=== PATIENT | female | born 1950 | race Caucasian/White ===

== ENCOUNTER 2019-07-04 06:39 | Day surgery (SDC) | payer MEDICARE, BC ==
[2019-07-04] MEDS ORDERED: LIDOCAINE 2% MDV (20MG/ML) 20ML VIAL IV ONE (06:40)
[2019-07-04] MEDS ORDERED: ONDANSETRON HCL IV 4 MG/2 ML VIAL IVP ONE (06:40)
[2019-07-04] MEDS ORDERED: DEXAMETHASONE 4 MG/ML 1ML VIAL IVP ONE (06:40)
[2019-07-04] MEDS ORDERED: BUPIVACAINE 0.25% MPF 30ML VIAL IVP ONE (06:40)
[2019-07-04] MEDS ORDERED: BUPIVACAINE LIPOSOME/PF 133MG/10ML VIAL IV ONE (06:40)
[2019-07-04] MEDS ORDERED: MIDAZOLAM HCL 2MG/2ML VIAL IV ONE (06:40)
[2019-07-04] MEDS ORDERED: PROPOFOL 10 MG/ML VIAL IV ONE (06:40)
[2019-07-04] MEDS ORDERED: CEFAZOLIN 2 Gram 2 GM/50 ML BAG IVPB ONE (07:00)
[2019-07-04] MEDS ORDERED: ACETAMINOPHEN 1,000 MG/100 ML BTL IVPB ONE (07:00)
[2019-07-04] MEDS ORDERED: FAMOTIDINE 20MG TABLET PO ONE (07:00)
[2019-07-04] MEDS ORDERED: METOCLOPRAMIDE 10 MG TABLET PO ONE (07:00)
[2019-07-04] MEDS ORDERED: SCOPOLAMINE 1 PATCH TDSY TD ONE (07:00)
[2019-07-04] MEDS ORDERED: RINGERS SOLUTION,LACTATED 1,000 ML IV ONE ×2 (07:30→10:00)
[2019-07-04] MEDS ORDERED: BUPIVACAINE 0.5% W/EPI MPF 30 ML VIAL SQ ONE (09:31)
[2019-07-04] MEDS ORDERED: METHYLPREDNISOLONE 40MG/VIAL IU ONE (09:31)
--- NOTE | 2019-07-05 14:40 | Operative Note ---
DATE OF SURGERY: 07/04/2019 PREOPERATIVE DIAGNOSIS: Tear of the rotator cuff on the right with impingement. POSTOPERATIVE DIAGNOSES: 1. Complex glenohumeral labral tear superiorly and posteriorly. 2. Chronic tear of the rotator cuff on the right. 3. Large unstable os acromiale. 4. Profound right shoulder external impingement. 5. 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 OPERATION: 1. Repair of a chronically torn rotator cuff tear on the right. 2. Right shoulder arthroscopy with intraarticular debridement. 3. Right shoulder open acromioplasty, CA ligament resection, and subacromial bursectomy. 4. Open reduction and internal fixation of an os acromiale. 5. Resection right distal clavicle. STAFF SURGEON: Jose Noyola MD ANESTHESIA: Interscalene block with sedation. PREPARATION: Chloraprep. INDIVIDUAL CONSIDERATIONS: None. PROCEDURE: The patient was taken to the operating room and had a successful induction of an interscalene block. She was then given sedation and placed in a semi-seated beach chair position. Her right arm and shoulder were prepped and draped in the usual fashion. The patient had posterior portal identified for arthroscopy. Skin was infiltrated with 0.5% Marcaine with epinephrine prior. An 18-gauge spinal needle was placed in the joint, and the joint was inflated with normal saline with a 60-mL syringe. A stab wound was made, and a blunt-tipped trocar for the scope was placed in the joint. The joint was inflated with normal saline. An anterior accessory portal was then made just inferior to the intact long head of the biceps tendon in a retrograde fashion with a Wissinger abdoul, and the joint was irrigated out. Obvious complex tear of the labrum superiorly and extending posteriorly I would say from 9-12. Subscap tendon was normal. The labral tear was debrided. Long head was normal. Glenohumeral joint was normal. Obvious unstable tear of the rotator cuff underneath more proximally. This was smoothed off with a shaver. Synovitis in the area was smoothed off with a shaver. After irrigation, portals were closed with jose francisco. The patient had an anterior approach to the subacromial space and distal clavicle. Sharp dissection carried down through skin and subcutaneous tissues. Small veins were coagulated with a Bovie. An anterior deltoid interval was developed. Care was taken not to split the deltoid more than about 4 cm distal to the anterior tip of the acromion. At this point, it became clear that there was a large os acromiale. It measured almost 3 x 3 cm. The deltoid was then taken subperiosteally off the anterior aspect of the highly degenerated distal clavicle. An oscillating saw was used to remove it, which there were huge spurs present, taking about a centimeter. I then went ahead and resected the os acromiale off the more proximal piece leaving the deltoid attachments. I then did an acromioplasty where spurs were on the os acromiale anteriorly and there was a large hypertrophic bursa, which was resected out. I resected out the CA ligament. The spurs of the os acromiale were then smoothed off right a rasp. I went ahead and freshened up the area of the os acromiale, which had some cartilaginous tissue consistent with a nonunion, down to good bleeding bone. I then held this reduced and then was able to put 3 cannulated 3.0 screws across this, which gave excellent stable solid osteosynthesis with screws and washers. I made sure there was no further impingement. I touched up the acromioplasty with a rasp and now I had a good look at the rotator cuff. proximal on the supraspinatus, there was about a 2 cm tear longitudinally where the os had been digging into the tendon. I freshened this up and repaired it with some buried knot 0 Vicryl sutures. After irrigation, the deltoid was reattached to the remaining acromion with multiple interrupted #2 Vicryl going directly through the bony acromion. The periosteal cuff of the distal clavicle was closed with running #2 Vicryl. Anterior deltoid interval was closed with running #1 Vicryl. Subcu was closed with 2-0 plus Vicryl in layers and skin was closed with running 3-0 subcuticular quill. I injected about 15 mL of 0.5% Marcaine with epinephrine into the subacromial space through a sterile 18-gauge needle, and a sterile bulky compressive dressing and sling were applied. The patient tolerated the procedure well. Needle and sponge counts were correct. Estimated blood loss was minimal. She was taken back to recovery in good condition. There were no complications. JULIAN
== END 2019-07-04 12:07 | disposition home or self-care (01) ==
LOC: SUR 06:39
PROVIDERS: ATTEND Orthopaedic Surgery
DX: S43.431A Superior glenoid labrum lesion of right shoulder, initial encounter (principal); M75.101 Unspecified rotator cuff tear or rupture of right shoulder, not specified as traumatic; M89.8X1 Other specified disorders of bone, shoulder; M75.41 Impingement syndrome of right shoulder; M19.011 Primary osteoarthritis, right shoulder; I10 Essential (primary) hypertension; I48.91 Unspecified atrial fibrillation; Z79.01 Long term (current) use of anticoagulants; E03.9 Hypothyroidism, unspecified; Z86.718 Personal history of other venous thrombosis and embolism
CPT/HCPCS: 76942; C1713; C9290; J1030; J2405; J7120